=== PATIENT | male | born 1955 | race American Indian/Alaskan Native ===

== ENCOUNTER 2016-10-24 21:31 | Observation (INO) | payer BC ==
[2016-10-24] MEDS ORDERED: TYLENOL ONE (21:35)
[2016-10-24] MEDS ORDERED: TYLENOL PO STA (21:38)
[2016-10-24] MEDS ORDERED: NACL 0.9% 500 ML 500 ML IV ONE (21:38)
[2016-10-24 22:03] LABS: Basophils % (Auto) 0.5 % (0.0-1.8); Eosinophils % (Auto) 1.2 % (0.0-4.3); Hematocrit 36.1 % (35.5-45.6); Hemoglobin 12.4 gm/dl (11.8-15.2); Mean Corpuscular HGB Conc 35 % (32-34); Mean Corpuscular Hemoglobin 38 pg (28-32); Mean Corpuscular Volume 109 fl (84-94); Red Cell Distribution Width 15.3 % (13.2-15.2); White Blood Count 5.4 K/mm3 (4.5-11.0)
[2016-10-24 22:15] LABS: INR 1.36 (0.87-1.13)
[2016-10-24 22:25] LABS: Alanine Aminotransferase 167 units/L (7-56); Albumin 3.2 g/dL (3.9-5); Albumin/Globulin Ratio 0.5 %; Alkaline Phosphatase 173 units/L (35-129); Anion Gap 17 mmol/L; BUN/Creatinine Ratio 31.42; Blood Urea Nitrogen 22 mg/dL (9-20); Calcium 9.1 mg/dL (8.4-10.2); Carbon Dioxide 24 mmol/L (22-30); Glucose 102 mg/dL (75-100); Potassium 4.8 mmol/L (3.6-5.0); Sodium 130 mmol/L (137-145); Total Protein 9.3 g/dL (6.3-8.2)
[2016-10-24] MEDS ORDERED: ZOFRAN IV ONE (22:38)
[2016-10-24] MEDS ORDERED: TYLENOL PO ONE (22:38)
[2016-10-24] MEDS ORDERED: MORPHINE IV ONE (22:38)
[2016-10-24 22:41] LABS: Platelet Count 99 K/mm3 (140-440)
--- NOTE | 2016-10-24 23:43 | Cat Scan Report ---
FINAL REPORT PROCEDURE: CT ANGIO CHEST TECHNIQUE: Computerized tomographic angiography of the chest was performed after the IV injection of iodinated nonionic contrast including image processing. The image data was postprocessed using 2-dimensional multiplanar reformatted (MPR) and 3-dimensional (MIP and/or volume rendered) techniques. HISTORY: for PE COMPARISON: No prior studies are available for comparison. FINDINGS: Heart and pericardium: Normal. Thoracic aorta: There tortuosity of thoracic aorta. No aneurysm or dissection.. Pulmonary vasculature: There is no evidence of pulmonary arterial emboli.. Lymph nodes: No enlarged thoracic lymph nodes. Lungs: Chronic obstructive pulmonary disease with mild fibrosis. No consolidation, effusion or pneumothorax. The central airway is patent. Pleural space: No effusion, thickening, or pneumothorax. Musculoskeletal structures: Mild degenerative changes of the thoracic spine. There is a moderate right convex thoracic scoliosis. No acute osseous abnormality.. Upper abdominal structures: Within the liver there are multiple areas of irregular attenuation throughout the right and left lobes of the liver that is imaged. The largest of these areas is in the anterior left lobe of the liver and measures up to 7.2 centimeters. The findings could represent multiple etiologies including benign and malignant entities as well as metastatic change. A full evaluation of the liver would be appropriate this patient. This could include multi phase CT, MRI and ultrasound. The liver is fatty infiltrated. The spleen appears enlarged. Distended gallbladder is suspected. This is not fully evaluated on this study.,. IMPRESSION: There is no evidence of pulmonary arterial emboli. COPD with mild fibrosis. No consolidation or effusion. Multiple areas of irregular attenuation identified throughout the liver the largest measuring 7.2 centimeters in the anterior left lobe of the liver. Irregular contrast enhancement is noted. Further evaluation of the liver well be essential as described.
[2016-10-24 23:48] LABS: Bilirubin,Urine NEG (Negative); Blood,Urine NEG (Negative); Ketones,Urine NEG (Negative); Leukocyte Esterase,Urine NEG (Negative); Mucus,Urine FEW /HPF; Nitrite,Urine NEG (Negative); Protein,Urine <15 mg/dL mg/dL (Negative); Urobilinogen,Urine < 2.0 mg/dL (<2.0)
--- NOTE | 2016-10-25 01:51 | Cat Scan Report ---
FINAL REPORT PROCEDURE: CT ABDOMEN PELVIS WO CON TECHNIQUE: Computerized axial tomography of the abdomen and pelvis was performed without intravenous contrast. This study is performed without intravascular contrast material and its sensitivity for abdominal and pelvic pathology, including neoplasms, inflammation, abscess, free fluid, thrombosis, arterial dissection and infarction, is reduced compared with a contrast enhanced study. HISTORY: liver CA COMPARISON: No prior studies are available for comparison. FINDINGS: Liver: The liver is enlarged specially the left lobe. There are numerous areas of hypoattenuation in mixed attenuation throughout the liver. In the left lobe of the liver there is a large mass measuring up to 9.5 centimeters. The findings are consistent with the patient's history of liver cancer.. Spleen: The spleen is enlarged.. Gallbladder and biliary system: The gallbladder lumen is distended. No stones are identified. No distention of the biliary ductal system.. Pancreas: Normal. Adrenals: Normal. Kidneys: Both kidneys have normal size. No hydronephrosis. There are few renal cortical cysts identified bilaterally.. GI tract: The stomach is normal. The small bowel has a normal caliber without obstruction. No ileus or enteritis. The colon is normal. There is moderate fecal debris within the colon.. Lymph nodes and mesentery: Normal. Vasculature: Mild atherosclerosis of the aorta and branching vessels.. Bladder: Normal. Reproductive organs: Normal. Peritoneum: No free fluid. Musculoskeletal structures: No significant abnormality. Other: There are bilateral small inguinal hernias containing some fat and a small nondilated loop of bowel on the left.. IMPRESSION: The liver is enlarged with multiple areas of hypoattenuation consistent with the patient's history of liver cancer. The largest area of distension and tumor infiltration is in the left lobe measuring up to 9.5 centimeters. No evidence of intestinal urinary tract obstruction. No ileus or enteritis. Distended gallbladder lumen. No dilatation of the biliary ductal system. Bilateral inguinal hernias. On the left there is a small nondilated loop of bowel contained within the hernia..
--- NOTE | 2016-10-25 02:32 | Emergency Department Report ---
ED Fever HPI - General Chief Complaint: Fever Stated Complaint: DEHYDRATION Time Seen by Provider: 10/24/16 22:37 Source: patient - History of Present Illness Initial Comments: 61 yo male with past medical history of liver cancer presenting to the emergency department complaining of fever and generalized weakness. Patient states over the last 3 days he's been having decreased appetite and has been unable to tolerate food by mouth secondary to nausea vomiting. Patient also endorses a productive cough with yellow sputum. Patient denies headache, neck stiffness, chest.". Urinary complaints. Timing/Duration: just prior to arrival Associated Symptoms: cough, muscle aches, nausea/vomiting. denies: abdominal pain, chest pain, confusion, diaphoresis, headache, rash, shortness of breath, sore throat, stiff neck, syncope, weakness ED Review of Systems ROS: Stated complaint: DEHYDRATION Other details as noted in HPI Constitutional: fever, malaise, weakness Eyes: denies: eye pain, eye discharge, vision change ENT: denies: ear pain, throat pain Respiratory: cough. denies: shortness of breath, wheezing Cardiovascular: denies: chest pain, palpitations Endocrine: no symptoms reported Gastrointestinal: nausea, vomiting. denies: abdominal pain, diarrhea, hematochezia Genitourinary: denies: urgency, dysuria Musculoskeletal: denies: back pain, joint swelling, arthralgia Skin: denies: rash, lesions Neurological: denies: headache, weakness, paresthesias Psychiatric: denies: anxiety, depression Hematological/Lymphatic: denies: easy bleeding, easy bruising ED Past Medical Hx - Past Medical History Previous Medical History?: Yes Additional medical history: Liver issues, recent Liver Biopsy - Surgical History Past Surgical History?: No - Social History Smoking Status: Never Smoker Substance Use Type: None ED Physical Exam - General Limitations: No Limitations General appearance: alert, in no apparent distress - Head Head exam: Present: atraumatic, normocephalic - Eye Eye exam: Present: normal appearance, PERRL, EOMI, scleral icterus - ENT ENT exam: Present: mucous membranes moist - Neck Neck exam: Present: normal inspection - Respiratory Respiratory exam: Present: normal lung sounds bilaterally. Absent: respiratory distress - Cardiovascular Cardiovascular Exam: Present: regular rate, normal rhythm. Absent: systolic murmur, diastolic murmur, rubs, gallop - GI/Abdominal GI/Abdominal exam: Present: soft, normal bowel sounds - Rectal Rectal exam: Present: deferred - Extremities Exam Extremities exam: Present: normal inspection - Back Exam Back exam: Present: normal inspection - Neurological Exam Neurological exam: Present: alert, oriented X3 - Psychiatric Psychiatric exam: Present: normal affect, normal mood - Skin Skin exam: Present: warm, dry, intact, normal color. Absent: rash - Other Other exam information: NIHSS: 0 ED Course Vital Signs 10/24/16 10/24/16 10/24/16 21:40 22:17 22:51 Temperature 101.3 F H 100.8 F H Pulse Rate 96 H 103 H Respiratory 24 18 18 Rate Blood Pressure 132/85 102/67 [Right] O2 Sat by Pulse 97 92 Oximetry - Reevaluation(s) Reevaluation #1: 10/25/16 02:43 pt resting comfortably ED Medical Decision Making - Lab Data Result diagrams: 10/24/16 21:40 10/24/16 21:40 - EKG Data EKG shows normal: sinus rhythm (81), axis (normal ), intervals (normal QTC ), ST -T waves (no elevation, no depression ) Rate: normal - Radiology Data Radiology results: report reviewed, image reviewed CTA chest: There is no evidence of pulmonary arterial emboli. COPD with mild fibrosis. No consolidation or effusion. Multiple areas of irregular attenuation identified throughout the liver the largest measuring 7.2 cm in the anterior left lobe of the liver. Irregular contrast enhancement is noted. Further evaluation liver the essential as described. Dr. Mervin Gomes CT abdomen and pelvis: liver is enlarged multiple areas of hypoattenuation consistent with the patient's history of liver cancer. The largest area distention and tumor infiltration is in the left lobe measuring up to 9.5 cm. No evidence of intestinal urinary tract obstruction. No ileus or enteritis. Distended gallbladder lumen. No dilatation of the biliary ductal system. Bilateral inguinal hernias. On the left there is a small nondilated loop of bowel contained within the hernia. Dr. Earnestine Gomes - Medical Decision Making 61 YO male with history of liver CA presenting to ED with cough and fever 1) Fever unsure of cause however given pt is immunosuppressed, I wIll start him on Levaquin IV, and admit the medicine service observation. Patient workup negative for PE, ACS. The suspicion for CVA as NIH stroke scale 0 patient has no focal neurological deficits. Critical care attestation.: If time is entered above; I have spent that time in minutes in the direct care of this critically ill patient, excluding procedure time. ED Disposition Clinical Impression: Fever, Fatigue, Cough Disposition: DC-[id number] OP ADMIT IP TO THIS HOSP Is pt being admited?: Yes Does the pt Need Aspirin: No Condition: Stable Referrals: PRIMARY CARE, [Primary Care Provider] - 3-5 Days
[2016-10-25] MEDS ORDERED: ZOFRAN IV PRN (02:51)
[2016-10-25] MEDS ORDERED: TYLENOL PO PRN (02:56)
[2016-10-25] MEDS ORDERED: MORPHINE IV ONE (02:56)
[2016-10-25] MEDS ORDERED: TESSALON PERLES PO ONE ×2 (02:57→04:24)
[2016-10-25] MEDS ORDERED: MORPHINE IV PRN (03:01)
--- NOTE | 2016-10-25 03:08 | History and Physical Report ---
History of Present Illness Date of examination: 10/25/16 Date of admission: 10/25/16 Chief complaint: Chief complaint is weakness, other complaint include cough History of present illness: History of present illness, patient is a 61-year-old male with history of liver cancer presenting with weakness, cough productive of yellow sputum and inability to keep food down because of nausea vomiting. There is no history of chest pain, no history of shortness of breath but there is history of fever, patient also denied history of diarrhea and denied history of dizziness. Past History Past Medical History: liver disease Past Surgical History: Other (LIVER BIOPSY) Social history: no significant social history Family history: no significant family history Medications and Allergies Allergies Allergy/AdvReac Type Severity Reaction Status Date / Time No Known Allergies Allergy Verified 10/24/16 21:38 Active Meds: Active Medications Acetaminophen (Tylenol) 650 mg PO Q4H PRN PRN Reason: For Pain/Fever/Headache Albuterol/Ipratropium (Duoneb 0.5 Mg-3 Mg/3 Ml Soln) 1 ampul IH QIDRT [facility] Heparin Sodium (Porcine) (Heparin) 5,000 unit SUB-Q Q12HR [facility] Levofloxacin/Dextrose (Levaquin 750mg/150ml) 750 mg in 150 mls @ 100 mls/hr IV Q24HR [facility]OH[facility] PRN Reason: Protocol Levofloxacin/Dextrose (Levaquin 750mg/150ml) 750 mg in 150 mls @ 100 mls/hr IV Q24HR [facility]OHRA PRN Reason: Protocol Sodium Chloride (Nacl 0.9% 1000 Ml) 1,000 mls @ 75 mls/hr IV DIRECT [facility] Methylprednisolone Sodium Succinate (Solu-Medrol) 60 mg IV Q8H [facility] Morphine Sulfate (Morphine) 2 mg IV Q4H PRN PRN Reason: Pain, Moderate (4-6) Ondansetron HCl (Zofran) 4 mg IV Q6H PRN PRN Reason: Nausea And Vomiting Pseudoephedrine/Acetam/Chlorphenir (Robitussin Ac) 5 ml PO Q4H PRN PRN Reason: Cough Review of Systems Constitutional: fever, anorexia, weakness, no weight loss, no weight gain, no chills, no sweats, no night sweats, no malaise, no lethargy, no chronic headaches, no poor appetite, no daytime sleepiness, no chronic pain Eyes: bilateral: other (NO BILATERAL EYE SYMPTOMS) Ears, nose, mouth and throat: no ear pain, no ear discharge, no tinnitis, no decreased hearing, no nose pain, no nasal congestion, no nasal discharge, no sinus pressure, no sinus pain, no bleeding gums, no mouth pain, no hoarseness, no sore throat, no swelling in mouth, no post-nasal drip, no headache, no vertigo, no pain front of neck, no neck fullness/pressure, no neck lump Cardiovascular: no chest pain, no orthopnea, no palpitations, no rapid/ irregular heart beat, no edema, no lightheadedness, no shortness of breath, no dyspnea on exertion, no paroxysmal nocturnal dyspnea, no claudication, no phlebitis, no high blood pressure, no leg edema, no decreased exercise tolerance Respiratory: cough with sputum, no excessive sputum, no hemoptysis, no shortness of breath, no pleurisy, no pain, no respiratory infections, no home oxygen Gastrointestinal: no abdominal pain, no nausea, no vomiting, no diarrhea, no constipation, no change in bowel habits, no hematemesis, no melena, no hematochezia, no loss of appetite, no early satiety, no heartburn, no indigestion, no jaundice, no dyspepsia/bloating, no early satiety Genitourinary Male: no dysuria, no hematuria, no flank pain, no discharge, no urinary frequency, no urinary hesitancy, no nocturia, no incontinence, no erectile dysfunction, no impotence, no decreased libido, no testicular pain, no testicular lump, no difficulties fathering child, no polyuria, no urinary retention, no kidney stones Rectal: no pain, no incontinence, no bleeding, no itching, no hemorrhoids, no discharge, no flatulence, no other Musculoskeletal: no neck stiffness, no neck pain, no shooting arm pain, no arm numbness/tingling, no low back pain, no shooting leg pain, no leg numbness/ tingling, no redness of joints, no hot joints, no morning stiffness, no muscle weakness, no muscle cramps, no myalgias, no atrophy, no limitation of motion, no frequent falls, no fractures, no loss of height, no prior amputations Integumentary: no rash, no pruritis, no redness, no sores, no wounds, no jaundice, no boils, no blisters, no growths, no bullae, no lesions, no darkening of skin, no depigmentation, no acne, no dryness, no color changes, no change in hair/nails, no brittle nails, no striae, no hirsutism, no foot/leg ulcers, no onychomycosis Neurological: no head injury, no transient paralysis, no paralysis, no weakness , no parathesias, no numbness, no tingling, no seizures, no syncope, no tremors , no vertigo, no headaches, no migraines, no convulsions, no aphasia, no change in speech, no change in mentation, no confusion, no memory loss, no gait dysfunction, no motor disturbance, no sensory deficit, no hearing difficulties, no burning pain, no paralysis, no spasticity Psychiatric: no memory loss, no change in sleep habits, no sleep disturbances, no insomnia, no hypersomnia, no change in appetite, no change in libido, no suicidal ideation, no disorientation, no paranoia, no depression, no hopelessness, no anhedonia, no anxiety attacks, no difficulties concentrating, no confusion, no irritability, no sadness/tearfullness Endocrine: no cold intolerance, no heat intolerance, no excessive thirst, no polydipsia, no polyuria, no proptosis, no deepening of the voice, no thyroid mass, no palpatations, no high blood sugars, no low blood sugars, no recent glucocorticoid use Hematologic/Lymphatic: no easy bruising, no easy bleeding, no lymphadenopathy, no lymphedema, no thrombophilia Allergic/Immunologic: no urticaria, no allergic rhinitis, no wheezing, no persistent infections, no anaphylaxis, no angioedema, no gluten intolerance, no seasonal allergies Exam - Constitutional Vitals: Temp Pulse Resp BP Pulse Ox 100.8 F H 103 H 18 102/67 92 10/24/16 22:17 10/24/16 22:17 10/24/16 22:51 10/24/16 22:17 10/24/16 22:17 General appearance: Present: mild distress - EENT Eyes: Present: PERRL, EOM intact ENT: clear oral mucosa - Neck Neck: Present: supple, normal ROM - Respiratory Respiratory effort: normal - Cardiovascular Rhythm: regular Heart Sounds: Present: S1 & S2. Absent: gallop, systolic murmur, diastolic murmur, rub, click - Extremities Extremities: no ischemia, No edema Peripheral Pulses: within normal limits - Abdominal General gastrointestinal: Present: soft, non-tender, non-distended, rigid, normal bowel sounds. Absent: tender, distended Male genitourinary: Present: deferred - Rectal Rectal Exam: deferred - Integumentary Integumentary: Present: clear, warm, dry - Musculoskeletal Musculoskeletal: strength equal bilaterally - Psychiatric Psychiatric: appropriate mood/affect - Neurologic Neurologic: CNII-XII intact Results - Labs CBC & Chem 7: 10/24/16 21:40 10/24/16 21:40 Labs: Laboratory Last Values WBC 5.4 K/mm3 (4.5-11.0) 10/24/16 21:40 RBC 3.30 M/mm3 (3.65-5.03) L 10/24/16 21:40 Hgb 12.4 gm/dl (11.8-15.2) 10/24/16 21:40 Hct 36.1 % (35.5-45.6) 10/24/16 21:40 MCV 109 fl (84-94) H 10/24/16 21:40 MCH 38 pg (28-32) H 10/24/16 21:40 MCHC 35 % (32-34) H 10/24/16 21:40 RDW 15.3 % (13.2-15.2) H 10/24/16 21:40 Plt Count 99 K/mm3 (140-440) L 10/24/16 21:40 Lymph % (Auto) 20.2 % (13.4-35.0) 10/24/16 21:40 [place] % (Auto) 13.7 % (0.0-7.3) H 10/24/16 21:40 Eos % (Auto) 1.2 % (0.0-4.3) 10/24/16 21:40 Baso % (Auto) 0.5 % (0.0-1.8) 10/24/16 21:40 Lymph # 1.1 K/mm3 (1.2-5.4) L 10/24/16 21:40 [place] # 0.7 K/mm3 (0.0-0.8) 10/24/16 21:40 Eos # 0.1 K/mm3 (0.0-0.4) 10/24/16 21:40 Baso # 0.0 K/mm3 (0.0-0.1) 10/24/16 21:40 Seg Neutrophils % 64.4 % (40.0-70.0) 10/24/16 21:40 Seg Neutrophils # 3.5 K/mm3 (1.8-7.7) 10/24/16 21:40 PT 16.7 Sec. (12.2-14.9) H 10/24/16 21:40 INR 1.36 (0.87-1.13) H 10/24/16 21:40 VBG pH 7.390 (7.320-7.420) 10/24/16 21:40 Sodium 130 mmol/L (137-145) L 10/24/16 21:40 Potassium 4.8 mmol/L (3.6-5.0) 10/24/16 21:40 Chloride 94.0 mmol/L (98-107) L 10/24/16 21:40 Carbon Dioxide 24 mmol/L (22-30) 10/24/16 21:40 Anion Gap 17 mmol/L 10/24/16 21:40 BUN 22 mg/dL (9-20) H 10/24/16 21:40 Creatinine 0.7 mg/dL (0.8-1.5) L 10/24/16 21:40 Estimated GFR > 60 ml/min 10/24/16 21:40 BUN/Creatinine Ratio 31.42 % 10/24/16 21:40 Glucose 102 mg/dL (75-100) H 10/24/16 21:40 Lactic Acid 1.00 mmol/L (0.7-2.0) 10/25/16 00:27 Calcium 9.1 mg/dL (8.4-10.2) 10/24/16 21:40 Total Bilirubin 4.80 mg/dL (0.1-1.2) H 10/24/16 21:40 AST 438 units/L (5-40) H 10/24/16 21:40 ALT 167 units/L (7-56) H 10/24/16 21:40 Alkaline Phosphatase 173 units/L (35-129) H 10/24/16 21:40 Total Protein 9.3 g/dL (6.3-8.2) H 10/24/16 21:40 Albumin 3.2 g/dL (3.9-5) L 10/24/16 21:40 Albumin/Globulin Ratio 0.5 % 10/24/16 21:40 Urine Color Cheryl (Yellow) 10/24/16 23:00 Urine Turbidity Clear (Clear) 10/24/16 23:00 Urine pH 5.0 (5.0-7.0) 10/24/16 23:00 Ur Specific [place] 1.023 (1.003-1.030) 10/24/16 23:00 Urine Protein <15 mg/dl mg/dL (Negative) 10/24/16 23:00 Urine Glucose (UA) Neg mg/dL (Negative) 10/24/16 23:00 Urine Ketones Neg mg/dL (Negative) 10/24/16 23:00 Urine Blood Neg (Negative) 10/24/16 23:00 Urine Nitrite Neg (Negative) 10/24/16 23:00 Urine Bilirubin Neg (Negative) 10/24/16 23:00 Urine Urobilinogen < 2.0 mg/dL (<2.0) 10/24/16 23:00 Ur Leukocyte Esterase Neg (Negative) 10/24/16 23:00 Urine WBC (Auto) 1.0 /HPF (0.0-6.0) 10/24/16 23:00 Urine RBC (Auto) 3.0 /HPF (0.0-6.0) 10/24/16 23:00 U Epithel Cells (Auto) < 1.0 /HPF (0-13.0) 10/24/16 23:00 Hyaline Casts 6 /LPF 10/24/16 23:00 Urine Mucus Few /HPF 10/24/16 23:00 Assessment and Plan - Patient Problems (1) Weakness Current Visit: Yes Status: Acute Plan to address problem: Patient will be placed on observation in the medical aceves will be on i.v N/ saline at 75ML/HR the patient will be on Robitussin AC 5 ML by mouth every 4 hours when necessary cough, patient will also be on IV Levaquin 750 mg daily because of COPD and will be on DuoNeb 4 times a day. Patient will also be on Solu-Medrol 60 mg every 8 hours and, will be on Zofran 4 mg every 6 hours as needed for nausea vomiting (2) COPD (chronic obstructive pulmonary disease) Current Visit: Yes Status: Acute Qualifiers: COPD type: C Chronic bronchitis type: C Emphysema type: E
[2016-10-25] MEDS ORDERED: MORPHINE ONE (04:21)
[2016-10-25] MEDS: NACL 0.9% 1000 ML 1,000 ML IV SCH ×2 (05:24→21:25)
[2016-10-25] MEDS ORDERED: DUONEB 0.5 MG-3 MG/3 ML SOLN IH SCH ×2 (08:00→10:45)
--- NOTE | 2016-10-25 09:03 | Event Note ---
Date: 10/25/16 Patient with liver CA question metastasis and with elevated transaminitis which could also be secondary to liver cancer. We'll obtain consultation with hematology oncologist. Also the patient has been here before we will obtain a merge his records. And we'll also check hepatitis profile. We'll discontinue acetaminophen and ibuprofen could be used for fever. Source of infection still unknown but this could be secondary to the cancer. We'll continue current antibiotic with Levaquin. He informs me that the reason he has not been eating is because he has poor appetite. He states he does not feel nauseous today and would like to eat a regular diet.
--- NOTE | 2016-10-25 09:06 | XRay Report ---
Single view chest: History: Possible sepsis. Findings: Cardiomegaly. Trachea is midline. No consolidation, pneumothorax or pleural effusion. Impression: Cardiomegaly. No acute changes.
[2016-10-25] MEDS ORDERED: LEVAQUIN 750MG/150ML 750 MG/150 ML BAG IV SCH (10:00)
[2016-10-25] MEDS ORDERED: PROVENTIL IH PRN (10:48)
[2016-10-25] MEDS: HEPARIN SUB-Q SCH ×2 (11:08→21:27)
[2016-10-25] MEDS: LEVAQUIN 750MG/150ML 750 MG/150 ML BAG IV SCH (11:09)
[2016-10-25] MEDS: ROBITUSSIN AC PO PRN ×2 (11:19→18:16)
--- NOTE | 2016-10-25 11:39 | Hem/Onc Progress Note ---
Assessment and Plan Awaiting pathology. Apparently the pathology was sent to [place]. LFTs seem to be elevated secondary to liver dysfunction. Patient is better with fluids. If he gets discharged, he needs to follow-up with Dr. Alcala. Subjective Date of service: 10/25/16 Interval history: Patient is a known patient of Dr. Alcala. He has evidence of liver lesions. Recent biopsy was done. Results are not back yet. He had a colonoscopy earlier in the year which he says was unremarkable. It was done by Dr. Coffey. Patient has not had EGD. He has history of hepatitis C. He's never had any treatment for that. He does not smoke or drink. She presented with weakness cough chills. He feels a lot better with the fluids. CT findings noted. Objective - Exam Narrative Exam: Icteric - Constitutional Vitals: Last Vital Signs Temp 100.1 F H 10/25/16 07:40 Pulse 90 10/25/16 08:18 Resp 18 10/25/16 08:18 BP 103/69 10/25/16 07:40 Pulse Ox 94 10/25/16 07:55 General appearance: mild distress Performance status: 2- selfcare, ambulatory - Neck Neck: supple - Respiratory Respiratory: bilateral: diminished - Cardiovascular Rhythm: regular Extremities: No edema - Gastrointestinal General gastrointestinal: Present: other (fullness all in the right upper quadrant up to the epigastric area consistent with enlarged liver)
[2016-10-26] MEDS: ROBITUSSIN AC PO PRN (05:12)
[2016-10-26 08:10] VITALS: BP 126/78
[2016-10-26 08:15] LABS: Hemoglobin 11.3 gm/dl (11.8-15.2); Mean Corpuscular HGB Conc 34 % (32-34); Mean Corpuscular Hemoglobin 37 pg (28-32); Mean Corpuscular Volume 108 fl (84-94); Red Blood Count 3.05 M/mm3 (3.65-5.03); Red Cell Distribution Width 14.9 % (13.2-15.2); White Blood Count 2.9 K/mm3 (4.5-11.0)
[2016-10-26 08:23] LABS: Platelet Count 69 K/mm3 (140-440)
[2016-10-26 08:34] LABS: Alanine Aminotransferase 118 units/L (7-56); Albumin 2.5 g/dL (3.9-5); Alkaline Phosphatase 140 units/L (35-129); Anion Gap 15 mmol/L; Blood Urea Nitrogen 14 mg/dL (9-20); Calcium 8.3 mg/dL (8.4-10.2); Carbon Dioxide 23 mmol/L (22-30); Chloride 103.8 mmol/L (98-107); Glucose 132 mg/dL (75-100); Potassium 4.8 mmol/L (3.6-5.0); Sodium 137 mmol/L (137-145)
--- NOTE | 2016-10-26 08:49 | Discharge Summary ---
Providers - Providers Date of Admission: 10/25/16 02:49 Date of discharge: 10/26/16 Attending physician: WILMAN PHILLIPS MD 10/25/16 09:00 Consult to Physician [CONS] Routine Consulting Provider: TRINIDAD JERNIGAN Reason For Exam: liver ca Place consult to:: dr. jernigan Notified:: answering service Phone number called:: [phone] Was contact made?: Yes If yes, spoke with:: alpesh Time called:: 11:06 Primary care physician: FIRE EATER Hospitalization Reason for admission: nausea with vomiting Condition: Stable Hospital course: Patient is a 61-year-old male with a history of alcohol-related liver disease, hepatitis C, thrombosis who presents to the hospital with complaints of generalized weakness, cough productive of yellow phlegm, nausea with vomiting and inability to keep food down. Upon arrival to the hospital patient was started on Zofran was noted to be hyponatremic and started on IV fluids. Initially the patient was kept nothing by mouth but he reported that his symptoms had improved and was very hungry. He reported that his poor by mouth intake was not as a result of the nausea and vomiting but due to poor appetite. He felt that this has resolved. His labs initially showed an elevated LFTs but this trended down. Unfortunately his records were not managed with his old record which has him on that in name Ranjit Domínguez with him and number of [id number]. Upon review of this record appears that all his labs in sync. I also did find the pathology report which demonstrates hepatocellular carcinoma. The patient is clinically stable for discharge was seen by hematology oncology and is to follow with Dr. Whalen on discharge. Also recommended continued follow up with the technology teacher due to the hepatitis C as this needs to be follow workup. Discharge diagnosis * Hepatocellular carcinoma * Hyponatremia * Gastroenteritis * Transaminitis * Hepatitis C * Thrombocytosis * Pancytopenia Disposition: TO HOME OR SELFCARE Time spent for discharge: 35 mins Core Measure Documentation - Palliative Care Palliative Care/ Comfort Measures: Not Applicable - Core Measures Any of the following diagnoses?: none - VTE Discharge Requirements Deep Vein Thrombosis/Pulmonary Embolism Present on Admission: No Exam - Physical Exam Narrative exam: VITAL SIGNS: Reviewed. GENERAL: The patient appeared well appears older than stated age, chronically ill appearing. Vital signs as documented. HEAD: No signs of head trauma, but noted temporal wasting. EYES: Pupils are equal. Extraocular motions intact. Sclera icterus is noted EARS: Hearing grossly intact. MOUTH: Oropharynx is normal. NECK: No adenopathy, no JVD. CHEST: Chest with clear breath sounds bilaterally. No wheezes, rales, or rhonchi. CARDIAC: Regular rate and rhythm. S1 and S2, without murmurs, gallops, or rubs. VASCULAR: No Edema. Peripheral pulses normal and equal in all extremities. ABDOMEN: Soft, without detectable tenderness. No sign of distention. No rebound or guarding, and no masses palpated. Bowel Sounds normal. MUSCULOSKELETAL: Good range of motion of all major joints. Extremities without clubbing, cyanosis or edema. NEUROLOGIC EXAM: Alert and oriented x 3. No focal sensory or strength deficits. Speech normal. Follows commands. PSYCHIATRIC: Mood normal. SKIN: No rash or lesions. - Constitutional Vitals: Temp Pulse Resp BP Pulse Ox 97.9 F 75 16 126/78 97 10/26/16 07:45 10/26/16 07:45 10/26/16 07:45 10/26/16 07:45 10/26/16 07:45 Plan Activity: advance as tolerated, fall precautions Diet: regular Follow up with: PRIMARY CARE, [Primary Care Provider] - 3-5 Days MARLENE WHALEN MD [Staff Physician] - 7 Days GEETA RIOJAS MD [Staff Physician] - 7 Days Prescriptions: Ondansetron [Zofran TAB] 4 mg PO Q8HR PRN #30 tablet PRN Reason: Nausea And Vomiting
[2016-10-26] MEDS: HEPARIN SUB-Q SCH (11:02)
[2016-10-26 11:03] LABS: Albumin/Globulin Ratio 0.5 %
[2016-10-26] MEDS: LEVAQUIN 750MG/150ML 750 MG/150 ML BAG IV SCH (11:18)
== END 2016-10-26 14:45 | disposition home or self-care (01) ==
LOC: ED 21:31 → 3A 10-25 02:49
PROVIDERS: ADMIT Internal Medicine; ATTEND Internal Medicine
DX: R53.1 Weakness (principal); J44.9 Chronic obstructive pulmonary disease, unspecified; C22.7 Other specified carcinomas of liver; R11.2 Nausea with vomiting, unspecified; B19.20 Unspecified viral hepatitis C without hepatic coma; E87.1 Hypo-osmolality and hyponatremia; K52.9 Noninfective gastroenteritis and colitis, unspecified; R74.0 Nonspecific elevation of levels of transaminase and lactic acid dehydrogenase [LDH]; D47.3 Essential (hemorrhagic) thrombocythemia; D61.818 Other pancytopenia; Z85.05 Personal history of malignant neoplasm of liver
CPT/HCPCS: 36415; 71010; 71275; 74176; 80053; 80074; 81001; 82140; 82805; 85025; 85027; 85610; 87040; 87086; 93005; 93010; 94640; 94760; 96361; 96365; 96366; 96372; 96375; 96376; 99285; G0378; J1644; J1956; J2270; J2405; J2920; J7030; J7040; Q9967; 96374

== ENCOUNTER 2017-01-03 23:36 | Inpatient (IN) | payer BC ==
--- NOTE | 2017-01-04 00:36 | Emergency Department Report ---
HPI - General Chief Complaint: Dyspnea/Respdistress Time Seen by Provider: 01/04/17 00:08 - HPI HPI: Room 22 The patient is a 61-year-old male presenting with a chief complaint of shortness of breath. The patient states for the past 2-3 days he's had worsening shortness of breath. This evening patient awakened with worsening shortness of breath. Patient complains of abdominal tenderness and difficulty moving the fingers on his right hand. Patient has a history of metastatic hepatocellular carcinoma and hepatitis C and is on home hospice. The patient was previously DO NOT RESUSCITATE but this has been revoked and the patient is full code Location: [see above] Duration: [see above] Quality: Shortness of breath Severity: Moderate Modifying factors: [see above] Context: [see above] Mode of transportation: [not driving] ED Past Medical Hx - Past Medical History Previous Medical History?: Yes Hx Liver Disease: Yes (hepatitis c, metastatic hepatocellular carcinoma) Hx of Cancer: Yes (metastatic hepatocellular carcinoma) Hx Arthritis: Yes (bilateral hands) Hx COPD: Yes Additional medical history: Liver issues, recent Liver Biopsy,pneumonia, alcohol related liver disease///liver cancer, esophageal varices - Surgical History Past Surgical History?: Yes - Family History Family history: no significant - Social History Smoking Status: Never Smoker Substance Use Type: None - Medications Home Medications: Home Medications Medication Instructions Recorded Confirmed Last Taken Type Thiamine [Vitamin B-1] 100 mg PO QDAY #30 tablet 11/30/14 12/22/16 10/15/16 Rx Bisacodyl [Dulcolax suppos] 10 mg [place] QDAY PRN #4 supp.rect 11/14/16 12/22/16 Unknown Rx Cholecalciferol (Vitamin D3) 2,000 units PO QDAY #30 11/14/16 12/22/16 Rx [Vitamin D3 2,000 unit] HYDROcodone/APAP 10-325 [[place] 1 each PO TID PRN #30 tablet 11/14/16 12/20/16 Unknown Rx 10-325 mg TAB] Ipratropium/Albuterol Sulfate 1 ampul IH Q6HRT #30 ampul.neb 11/14/16 12/22/16 Unknown Rx [DUONEB *Not for PRN Use*] Ondansetron [Zofran TAB] 4 mg PO Q4H PRN #30 tablet 11/14/16 12/20/16 Unknown Rx Pantoprazole [Protonix TAB] 40 mg PO QDAY #30 tablet 11/14/16 12/22/16 Unknown Rx guaiFENesin [Robitussin] 200 mg PO Q4H PRN #30 oral.liqd 11/14/16 12/22/16 Unknown Rx Folic Acid 1 tab PO QDAY 12/20/16 12/20/16 Unknown History Spironolactone [Aldactone] 50 mg PO BID 12/20/16 12/20/16 Unknown History chlorproMAZINE [Thorazine] 25 mg PO Q8H PRN 12/20/16 12/20/16 Unknown History ED Review of Systems ROS: Stated complaint: DIFFICULTY IN BREATHING Other details as noted in HPI Comment: All other systems reviewed and negative Constitutional: denies: chills, fever Eyes: denies: eye pain, eye discharge, vision change ENT: denies: ear pain, throat pain Respiratory: shortness of breath Cardiovascular: denies: chest pain, palpitations Endocrine: no symptoms reported Gastrointestinal: abdominal pain Genitourinary: denies: urgency, dysuria Musculoskeletal: back pain Skin: denies: rash, lesions Neurological: weakness Psychiatric: denies: anxiety, depression Hematological/Lymphatic: denies: easy bleeding, easy bruising Physical Exam - Physical Exam Vital Signs: Vital Signs 01/04/17 00:01 Temperature 97.7 F Pulse Rate 120 H Respiratory 28 H Rate Blood Pressure 89/54 [Left] O2 Sat by Pulse 99 Oximetry Physical Exam: GENERAL: The patient is well-developed thin male lying on stretcher appearing cachectic and lethargic HEENT: Normocephalic. Atraumatic. Extraocular motions are intact. Icteric sclera NECK: Trachea midline CHEST/LUNGS: Clear to auscultation. HEART/CARDIOVASCULAR: Regular. There is no tachycardia. There is no gallop rub or murmur. ABDOMEN: Abdomen is soft, and protuberant with large ascites. Small tenderness to palpation in the left upper quadrant and right upper quadrant SKIN: There is no rash. There is 2-3+ bilateral lower extremity pitting edema. Jaundice NEURO: The patient is awake and oriented but appears lethargic. The patient is cooperative. Cranial nerves II through XII grossly intact. The patient has normal speech. Patient's 2 week to assess for pronator drift. Patient's associate professor of library media are equal bilaterally with sounds and index fingers/middle finger. Patient states he is unable to move his small and ring fingers of the right hand MUSCULOSKELETAL: There is no evidence of acute injury. ED Course Vital Signs 01/04/17 00:01 Temperature 97.7 F Pulse Rate 120 H Respiratory 28 H Rate Blood Pressure 89/54 [Left] O2 Sat by Pulse 99 Oximetry - Reevaluation(s) Reevaluation #1: 01/04/17 01:21 Discussed with patient my desire to place a central line given the lack of peripheral access despite multiple attempts by nursing. Patient currently does not wish to have a central line placed and states he does not want an EJ IV either. Family at bedside. ED Medical Decision Making - Lab Data Result diagrams: 01/04/17 00:30 01/04/17 00:30 Laboratory Tests 01/04/17 01/04/17 01/04/17 00:30 00:30 00:30 WBC 10.1 RBC 2.30 L Hgb 8.6 L Hct 26.5 L MCV 115 H MCH 38 H MCHC 33 RDW 15.3 H Plt Count 134 L Lymph % (Auto) 11.0 L [place] % (Auto) 15.0 H Eos % (Auto) 0.1 Baso % (Auto) 0.2 Lymph # 1.1 L [place] # 1.5 H Eos # 0.0 Baso # 0.0 Seg Neutrophils % 73.7 H Seg Neutrophils # 7.5 PT 23.4 H INR 2.08 H APTT 33.5 Sodium 123 L Potassium 5.5 H Chloride 86.0 L Carbon Dioxide 15 L Anion Gap 28 BUN 18 Creatinine 1.1 Estimated GFR > 60 BUN/Creatinine Ratio 16.36 Glucose 156 H Calcium 8.1 L Total Bilirubin 5.60 H AST 193 H ALT 71 H Alkaline Phosphatase 128 Ammonia Total Creatine Kinase 83 CK-MB (CK-2) 1.4 CK-MB (CK-2) Rel Index 1.6 Troponin T < 0.010 NT-Pro-B Natriuret Pep 612.7 Total Protein 7.7 Albumin 1.2 L Albumin/Globulin Ratio 0.2 01/04/17 00:30 WBC RBC Hgb Hct MCV MCH MCHC RDW Plt Count Lymph % (Auto) [place] % (Auto) Eos % (Auto) Baso % (Auto) Lymph # [place] # Eos # Baso # Seg Neutrophils % Seg Neutrophils # PT INR APTT Sodium Potassium Chloride Carbon Dioxide Anion Gap BUN Creatinine Estimated GFR BUN/Creatinine Ratio Glucose Calcium Total Bilirubin AST ALT Alkaline Phosphatase Ammonia 65.0 H Total Creatine Kinase CK-MB (CK-2) CK-MB (CK-2) Rel Index Troponin T NT-Pro-B Natriuret Pep Total Protein Albumin Albumin/Globulin Ratio Repeat potassium pending - EKG Data -: EKG Interpreted by Me EKG shows normal: sinus rhythm Rate: tachycardia (112 bpm) - EKG Data When compared to previous EKG there are: previous EKG unavailable - Radiology Data Radiology results: image reviewed (chest x-ray) interpreted by me: Chest x-ray-no focal infiltrates, hypoinflated lungs. There is a line in the left periphery of the lung zone that I do not believe represents a pneumothorax as it continues past the ribs and there are lung markings present distal - Differential Diagnosis hepatic encephalopathy, sepsis, end-stage liver disease Critical care attestation.: If time is entered above; I have spent that time in minutes in the direct care of this critically ill patient, excluding procedure time. ED Disposition Clinical Impression: Anemia, Thrombocytopenia, Coagulopathy, Metastatic cancer, Hyponatremia, Hepatocellular carcinoma Disposition: DC-09 OP ADMIT IP TO THIS HOSP Is pt being admited?: Yes Does the pt Need Aspirin: No Condition: Serious Referrals: PRIMARY CARE, [Primary Care Provider] - 3-5 Days Time of Disposition: 02:11 (hospitalist paged) Blank Doc - Documentation Documentation: Central line note Consent was obtained verbally Location: [Right femoral] The site was prepped and draped in a sterile fashion Site was anesthetized with lidocaine 1% approximately [3 mL] Landmarks identified and needle introduced until return of [dark nonpulsatile] blood Blood was obtained on second attempt Guidewire introduced using Seldinger technique and triple lumen catheter placed over guidewire There was blood return from [all 3 ports] Catheter was secured to patient by [suture/adhesive] The patient tolerated procedure well The initial attempt resulted in arterial puncture. Needle was withdrawn and pressure was held until hemostatic.
[2017-01-04 00:58] LABS: Basophils % (Auto) 0.2 % (0.0-1.8); Eosinophils % (Auto) 0.1 % (0.0-4.3); Hematocrit 26.5 % (35.5-45.6); Hemoglobin 8.6 gm/dl (11.8-15.2); Mean Corpuscular HGB Conc 33 % (32-34); Mean Corpuscular Hemoglobin 38 pg (28-32); Mean Corpuscular Volume 115 fl (84-94); Platelet Count 134 K/mm3 (140-440); Red Cell Distribution Width 15.3 % (13.2-15.2); White Blood Count 10.1 K/mm3 (4.5-11.0)
[2017-01-04] MEDS ORDERED: CEPHULAC PO ONE (01:03)
[2017-01-04] MEDS ORDERED: NACL 0.9% 500 ML 500 ML IV ONE ×2 (01:04→10:14)
[2017-01-04 01:13] LABS: Creatine Kinase MB 1.4 ng/mL (0.0-4.0)
[2017-01-04 01:15] LABS: Alanine Aminotransferase 71 units/L (7-56); Albumin 1.2 g/dL (3.9-5); Albumin/Globulin Ratio 0.2 %; Alkaline Phosphatase 128 units/L (35-129); Anion Gap 28 mmol/L; BUN/Creatinine Ratio 16.36; Blood Urea Nitrogen 18 mg/dL (9-20); Calcium 8.1 mg/dL (8.4-10.2); Carbon Dioxide 15 mmol/L (22-30); Creatine Kinase 83 units/L (55-170); Glucose 156 mg/dL (75-100); Potassium 5.5 mmol/L (3.6-5.0); Sodium 123 mmol/L (137-145); Total Protein 7.7 g/dL (6.3-8.2)
[2017-01-04 01:20] LABS: INR 2.08 (0.87-1.13)
[2017-01-04 01:21] LABS: Partial Thromboplastin Time 33.5 Sec. (24.2-36.6)
[2017-01-04] MEDS ORDERED: LEVOPHED DRIP 4 MG/NS 250 ML 4 MG/250 ML BAG IV ONE ×3 (02:08→02:11)
--- NOTE | 2017-01-04 02:40 | XRay Report ---
FINAL REPORT PROCEDURE: XR CHEST 1V AP TECHNIQUE: Chest radiograph anteroposterior view. CPT 57283 HISTORY: shortness of breath COMPARISON: 12/20/2016 FINDINGS: Heart: Normal. Mediastinum/Vessels: Normal. Lungs/Pleural space: Moderate infiltrate/atelectasis with effusion left lower lung. Mild atelectasis right lower lung. Elevated right hemidiaphragm. No pneumothorax. Bony thorax: No acute osseous abnormality. Life support devices: None. IMPRESSION: Moderate infiltrate/atelectasis with effusion in the left lower lung. Slight atelectasis right lower lung..
[2017-01-04] MEDS ORDERED: NORCO 10/325 PO PRN (04:14)
[2017-01-04] MEDS ORDERED: ROBITUSSIN PO PRN (04:14)
[2017-01-04] MEDS ORDERED: DULCOLAX PR PRN (04:14)
--- NOTE | 2017-01-04 04:14 | History and Physical Report ---
History of Present Illness Date of examination: 01/04/17 Date of admission: 01/04/17 02:15 Chief complaint: Shortness of breath History of present illness: 61-year-old -[place] male with a medical history significant for hepatocellular CA, ascites, hepatitis c presented to the emergency department complaining of shortness of breath for the past 3 days. Patient also complains dry cough, subjective fever. Patient has abdominal pain and leg swelling. Patient was discharged from this hospital to home hospice. On previous admissions patient was DO NOT RESUSCITATE DO NOT INTUBATE but he changed his mind currently underwent to be full code. REVIEW OF SYSTEMS: GENERAL: Significant with loss, + fatigue, + fever HEAD: no head ache EYES: no blurry vision, no acute visual loss EARS: no hearing loss, no discharge, no earache NOSE: no stuffiness, no sneezing, no discharge MOUTH, THROAT AND NECK: no bleeding gums, no sore throat, no swollen neck CARDIAC: no palpitations, + dyspnea on exertion, no orthopnea, no PND,+ edema, no chest pain RESPIRATORY: + shortness of breath, no wheeze, + cough, no sputum, no hemoptysis , no asthma GI: + decreased appetite, no nausea, no vomiting, no dysphagia, no diarrhea, no constipation, no abdominal pain URINARY: no change in frequency, no urgency, no polyuria, no hematuria, no incontinence MUSCULOSKELETAL: no muscle weakness, no pain, no joint stiffness NEUROLOGIC: no loss of sensation/numbness, no tingling, no tremors, no weakness/ paralysis HEMATOLOGIC: + anemia, no easy bruising SKIN: no rashes ENDOCRINE: no heat/cold intolerance, no polyuria, no polydipsia, no thyroid problems, no diabetes PSYCHIATRIC: no anxiety, no depression, no suicidal ideations Medications and Allergies Allergies Allergy/AdvReac Type Severity Reaction Status Date / Time No Known Allergies Allergy Verified 01/03/17 23:40 Home Medications Medication Instructions Recorded Confirmed Last Taken Type Thiamine [Vitamin B-1] 100 mg PO QDAY #30 tablet 11/30/14 12/22/16 10/15/16 Rx Bisacodyl [Dulcolax suppos] 10 mg NE QDAY PRN #4 supp.rect 11/14/16 12/22/16 Unknown Rx Cholecalciferol (Vitamin D3) 2,000 units PO QDAY #30 11/14/16 12/22/16 Rx [Vitamin D3 2,000 unit] HYDROcodone/APAP 10-325 [[place] 1 each PO TID PRN #30 tablet 11/14/16 12/20/16 Unknown Rx 10-325 mg TAB] Ipratropium/Albuterol Sulfate 1 ampul IH Q6HRT #30 ampul.neb 11/14/16 12/22/16 Unknown Rx [DUONEB *Not for PRN Use*] Ondansetron [Zofran TAB] 4 mg PO Q4H PRN #30 tablet 11/14/16 12/20/16 Unknown Rx Pantoprazole [Protonix TAB] 40 mg PO QDAY #30 tablet 11/14/16 12/22/16 Unknown Rx guaiFENesin [Robitussin] 200 mg PO Q4H PRN #30 oral.liqd 11/14/16 12/22/16 Unknown Rx Folic Acid 1 tab PO QDAY 12/20/16 12/20/16 Unknown History Spironolactone [Aldactone] 50 mg PO BID 12/20/16 12/20/16 Unknown History chlorproMAZINE [Thorazine] 25 mg PO Q8H PRN 12/20/16 12/20/16 Unknown History Active Meds: Active Medications Norepinephrine (Levophed Drip 4 Mg/Ns 250 Ml) 4 mg in 250 mls @ 15 mls/hr IV TITR ONE; 4 MCG/MIN PRN Reason: Protocol Stop: 01/04/17 18:47 Last Titration: 01/04/17 03:05 Dose: 6 mcg/min, 22.5 mls/hr Levofloxacin/Dextrose (Levaquin 750mg/150ml) 750 mg in 150 mls @ 100 mls/hr IV Q24HR ZOHRA PRN Reason: Protocol Exam - Physical Exam Narrative exam: Patient is in moderate cardiopulmonary distress. The patient is emaciated. Vital signs as documented. Head exam is unremarkable. + scleral icterus . Neck is without jugular venous distension, thyromegaly, or carotid bruits. Lungs are clear to auscultation. Cardiac exam reveals regular rate and Rhythm. Abdominal exam reveals grossly distended abdomen, significant for ascites. Extremities are +2 pedal and pretibial edema. PIER HAND: Sleepy. - Constitutional Vitals: Temp Pulse Resp BP Pulse Ox 97.7 F 103 H 16 106/67 99 01/04/17 00:01 01/04/17 02:30 01/04/17 02:30 01/04/17 02:30 01/04/17 02:30 Results - Labs CBC & Chem 7: 01/04/17 00:30 01/04/17 00:30 Labs: Laboratory Last Values WBC 10.1 K/mm3 (4.5-11.0) 01/04/17 00:30 RBC 2.30 M/mm3 (3.65-5.03) L 01/04/17 00:30 Hgb 8.6 gm/dl (11.8-15.2) L 01/04/17 00:30 Hct 26.5 % (35.5-45.6) L 01/04/17 00:30 MCV 115 fl (84-94) H 01/04/17 00:30 MCH 38 pg (28-32) H 01/04/17 00:30 MCHC 33 % (32-34) 01/04/17 00:30 RDW 15.3 % (13.2-15.2) H 01/04/17 00:30 Plt Count 134 K/mm3 (140-440) L 01/04/17 00:30 Lymph % (Auto) 11.0 % (13.4-35.0) L 01/04/17 00:30 [place] % (Auto) 15.0 % (0.0-7.3) H 01/04/17 00:30 Eos % (Auto) 0.1 % (0.0-4.3) 01/04/17 00:30 Baso % (Auto) 0.2 % (0.0-1.8) 01/04/17 00:30 Lymph # 1.1 K/mm3 (1.2-5.4) L 01/04/17 00:30 [place] # 1.5 K/mm3 (0.0-0.8) H 01/04/17 00:30 Eos # 0.0 K/mm3 (0.0-0.4) 01/04/17 00:30 Baso # 0.0 K/mm3 (0.0-0.1) 01/04/17 00:30 Seg Neutrophils % 73.7 % (40.0-70.0) H 01/04/17 00:30 Seg Neutrophils # 7.5 K/mm3 (1.8-7.7) 01/04/17 00:30 PT 23.4 Sec. (12.2-14.9) H 01/04/17 00:30 INR 2.08 (0.87-1.13) H 01/04/17 00:30 APTT 33.5 Sec. (24.2-36.6) 01/04/17 00:30 Sodium 123 mmol/L (137-145) L 01/04/17 00:30 Potassium 5.5 mmol/L (3.6-5.0) H 01/04/17 00:30 Chloride 86.0 mmol/L (98-107) L 01/04/17 00:30 Carbon Dioxide 15 mmol/L (22-30) L 01/04/17 00:30 Anion Gap 28 mmol/L 01/04/17 00:30 BUN 18 mg/dL (9-20) 01/04/17 00:30 Creatinine 1.1 mg/dL (0.8-1.5) 01/04/17 00:30 Estimated GFR > 60 ml/min 01/04/17 00:30 BUN/Creatinine Ratio 16.36 % 01/04/17 00:30 Glucose 156 mg/dL (75-100) H 01/04/17 00:30 Calcium 8.1 mg/dL (8.4-10.2) L 01/04/17 00:30 Total Bilirubin 5.60 mg/dL (0.1-1.2) H 01/04/17 00:30 AST 193 units/L (5-40) H 01/04/17 00:30 ALT 71 units/L (7-56) H 01/04/17 00:30 Alkaline Phosphatase 128 units/L (35-129) 01/04/17 00:30 Ammonia 65.0 umol/L (25-60) H 01/04/17 00:30 Total Creatine Kinase 83 units/L (55-170) 01/04/17 00:30 CK-MB (CK-2) 1.4 ng/mL (0.0-4.0) 01/04/17 00:30 CK-MB (CK-2) Rel Index 1.6 (0-4) 01/04/17 00:30 Troponin T < 0.010 ng/mL (0.00-0.029) 01/04/17 00:30 NT-Pro-B Natriuret Pep 612.7 pg/mL (0-900) 01/04/17 00:30 Total Protein 7.7 g/dL (6.3-8.2) 01/04/17 00:30 Albumin 1.2 g/dL (3.9-5) L 01/04/17 00:30 Albumin/Globulin Ratio 0.2 % 01/04/17 00:30 Assessment and Plan Assessment and plan: Acute on chronic hypoxic respiratory failure Right lower lobe pneumonia Sepsis with hypotension Hepatocellular CA/liver failure Acites Hyperammonemia Anemia Elevated INR - Patient is on pressors - IV Levaquin - I consented for paracentesis - Pain control - Lactose DVT prophylaxis - SCDs because the patient's INR is 2 Disposition - Admit to ICU CODE STATUS - Full Advance Directives: Yes (Full code) Plan of care discussed with patient/family: Yes
[2017-01-04] MEDS ORDERED: CEPHULAC PO PRN (04:30)
[2017-01-04] MEDS ORDERED: NACL 0.9% 100 ML ONE (07:08)
[2017-01-04] MEDS: DUONEB *Not for PRN Use IH SCH ×3 (08:30→20:37)
[2017-01-04] MEDS ORDERED: SODIUM BICARBONATE IV ONE ×3 (09:00→11:00)
[2017-01-04] MEDS ORDERED: D50W (25GM) Syringe IV ONE (09:00)
[2017-01-04] MEDS ORDERED: KIONEX PO PRN (09:05)
--- NOTE | 2017-01-04 09:05 | Event Note ---
Date: 01/04/17 pt seen and examined will continue current mx and plan as dictated in H and P K level 6.0 this am, will give NaHCO3, insulin 10units, d50 25gm, and calcium gluconate will also add kayexalate, d/c spiranolactone ordered paracenthesis Extended CC time 31 minutes
[2017-01-04] MEDS ORDERED: ALDACTONE PO SCH (10:00)
[2017-01-04] MEDS ORDERED: PROTONIX PO SCH (10:00)
[2017-01-04] MEDS ORDERED: CALCIUM GLUCONATE 1,000 MG in NACL 0.9% 100 ML IV ONE (10:00)
[2017-01-04] MEDS ORDERED: VITAMIN B-1 PO SCH (10:00)
[2017-01-04] MEDS ORDERED: VITAMIN D3 PO SCH (10:00)
[2017-01-04] MEDS ORDERED: FOLVITE PO SCH (10:00)
[2017-01-04] MEDS ORDERED: LEVAQUIN 750MG/150ML 750 MG/150 ML BAG IV SCH (10:00)
[2017-01-04] MEDS ORDERED: NACL 0.9% 500 ML 500 ML ONE (10:16)
[2017-01-04] MEDS: CEPHULAC PO SCH ×3 (10:41→22:58)
--- NOTE | 2017-01-04 14:08 | Consultation ---
History of Present Illness Consult date: 01/04/17 Requesting physician: KERON BARTLETT History of present illness: PULMONARY/CCM CONSULT NOTE (Full dictation # [id number]) Please see dictated notes for full details Medications and Allergies Allergies Allergy/AdvReac Type Severity Reaction Status Date / Time No Known Allergies Allergy Verified 01/03/17 23:40 Home Medications Medication Instructions Recorded Confirmed Last Taken Type Thiamine [Vitamin B-1] 100 mg PO QDAY #30 tablet 11/30/14 01/04/17 10/15/16 Rx Bisacodyl [Dulcolax suppos] 10 mg [place] QDAY PRN #4 supp.rect 11/14/16 01/04/17 Unknown Rx Cholecalciferol (Vitamin D3) 2,000 units PO QDAY #30 11/14/16 01/04/17 Rx [Vitamin D3 2,000 unit] HYDROcodone/APAP 10-325 [[place] 1 each PO TID PRN #30 tablet 11/14/16 01/04/17 Unknown Rx 10-325 mg TAB] Ipratropium/Albuterol Sulfate 1 ampul IH Q6HRT #30 ampul.neb 11/14/16 01/04/17 Unknown Rx [DUONEB *Not for PRN Use*] Ondansetron [Zofran TAB] 4 mg PO Q4H PRN #30 tablet 11/14/16 01/04/17 Unknown Rx Pantoprazole [Protonix TAB] 40 mg PO QDAY #30 tablet 11/14/16 01/04/17 Unknown Rx guaiFENesin [Robitussin] 200 mg PO Q4H PRN #30 oral.liqd 11/14/16 01/04/17 Unknown Rx Folic Acid 1 tab PO QDAY 12/20/16 01/04/17 Unknown History Spironolactone [Aldactone] 50 mg PO BID 12/20/16 01/04/17 Unknown History chlorproMAZINE [Thorazine] 25 mg PO Q8H PRN 12/20/16 01/04/17 Unknown History Active Meds: Active Medications Acetaminophen/Hydrocodone Bitart ([place] 10/325) 1 each PO TID PRN PRN Reason: Pain , Severe (7-10) Albuterol/Ipratropium (Duoneb *Not For Prn Use*) 1 ampul IH Q6HRT [facility] Last Admin: 01/04/17 08:30 Dose: 1 ampul Bisacodyl (Dulcolax) 10 mg SC QDAY PRN PRN Reason: Constipation Cholecalciferol (Vitamin D3) 2,000 unit PO QDAY [facility] Last Admin: 01/04/17 10:41 Dose: 2,000 unit Folic Acid (Folvite) 1 mg PO QDAY [facility] Last Admin: 01/04/17 10:40 Dose: 1 mg Guaifenesin (Robitussin) 200 mg PO Q4H PRN PRN Reason: Cough Norepinephrine (Levophed Drip 4 Mg/Ns 250 Ml) 4 mg in 250 mls @ 15 mls/hr IV TITR ONE; 4 MCG/MIN PRN Reason: Protocol Stop: 01/04/17 18:47 Last Titration: 01/04/17 09:00 Dose: 3 mcg/min, 11.25 mls/hr Levofloxacin/Dextrose (Levaquin 750mg/150ml) 750 mg in 150 mls @ 100 mls/hr IV Q24HR ZOHRA PRN Reason: Protocol Last Admin: 01/04/17 10:40 Dose: 100 mls/hr Lactulose (Cephulac) 20 gm PO Q6H [facility] Last Admin: 01/04/17 10:41 Dose: 20 gm Pantoprazole Sodium (Protonix) 40 mg PO QDAY [facility] Last Admin: 01/04/17 10:40 Dose: 40 mg Sodium Polystyrene Sulfonate (Kionex) 15 gm PO Q6HR PRN PRN Reason: Hyperkalemia Thiamine HCl (Vitamin B-1) 100 mg PO QDAY [facility] Last Admin: 01/04/17 10:40 Dose: 100 mg Physical Examination Vital signs: Vital Signs Temp Pulse Resp BP Pulse Ox 97.7 F 120 H 28 H 89/54 99 01/04/17 00:01 01/04/17 00:01 01/04/17 00:01 01/04/17 00:01 01/04/17 00:01 Results - Laboratory Findings CBC and BMP: 01/04/17 00:30 01/04/17 13:34 PT/INR, D-dimer PT 23.4 Sec. (12.2-14.9) H 01/04/17 00:30 INR 2.08 (0.87-1.13) H 01/04/17 00:30 Abnormal lab findings: Abnormal Labs 01/04/17 01/04/17 04:00 04:01 Potassium 6.0 H Crossmatch See Detail
[2017-01-04 14:13] LABS: Anion Gap 28 mmol/L; BUN/Creatinine Ratio 18.57; Blood Urea Nitrogen 26 mg/dL (9-20); Carbon Dioxide 17 mmol/L (22-30); Chloride 87.4 mmol/L (98-107); Glucose 128 mg/dL (75-100); Potassium 5.3 mmol/L (3.6-5.0); Sodium 127 mmol/L (137-145)
[2017-01-04 14:13] LABS: Phosphorous 5.7 mg/dL (2.5-4.5)
--- NOTE | 2017-01-04 15:21 | Event Note ---
Date: 01/04/17 Discussed with family (daughter, sister and brother) and updated pt's overall clinical status. They all decided to change his code status to DNR. DNR/AND form completed and placed on the chart. patient will be move out of the ICU, he is off levophed now.
[2017-01-04 22:14] LABS: BUN/Creatinine Ratio 18.75; Calcium 8.3 mg/dL (8.4-10.2); Chloride 88.6 mmol/L (98-107); Potassium 5.7 mmol/L (3.6-5.0)
--- NOTE | 2017-01-05 01:37 | Consultation ---
PULMONARY CRITICAL CARE EVALUATION CONSULTING PHYSICIAN: Dr. Wood. REASON FOR CONSULTATION: Difficulty breathing and hypotension. CHIEF COMPLAINT AND HISTORY OF PRESENT ILLNESS: The patient is a 61-year-old -French male known to me from past admission. PAST MEDICAL HISTORY: Significant for diagnosis of metastatic hepatocellular carcinoma, who actually is on home hospice, has had trouble with recurrent ascites. He is not too much of a good historian, but essentially states that he has been having difficulty breathing when asked for how long, he says forever. When asked if anything changed in particular on the day of this presentation, he denied any; however, the ER physician records that he mentioned in the past 2-3 days, he has had increased shortness of breath. On the day of presentation, he woke up in the morning with the same worsening shortness of breath. He complained of abdominal tenderness, difficulty taking a deep breath and difficulty moving the fingers on his right hand like he had cramps essentially. He denied any gross bleeding. He denied gross hematemesis. He denied gross hemoptysis. He denied hematochezia. He denied melena. In the Emergency Room, he evoked is DNR number, his prior DNR order, wanted to be a full code, was hypotensive, was admitted to the Intensive Care Unit on Levophed drip. When I stopped by to see him, he had been meeting with family members of his family. He had decided to be do not resuscitate again. He was asking for some relief from his ascites. With regards to tobacco use/abuse, he is not a current smoker, I believe he has a remote tobacco smoking history. This is as much of the history of presentation as I have. PAST MEDICAL HISTORY: Includes the following: History of liver cancer, metastatic; history of hepatitis C; history of hypertension. PAST SURGICAL HISTORY: Denied any. MEDICATIONS: He was on at the time I stopped by to see him, according to the medication administration record included the following: He was on Gaffney 10/325 mg p.o. t.i.d. p.r.n. severe pain, DuoNeb treatments nebulized q.6 hours, p.r.n. Dulcolax, vitamin D3 is 2000 units p.o. daily, folic acid 1 mg p.o. daily, p.r.n. Robitussin, lactulose 20 mg p.o. q.6 hours, Levaquin 750 mg IV daily, Levophed drip was going at 4 mcg per minute that was earlier, Protonix 40 mg p.o. daily, Kayexalate 15 grams p.o. q.6 hours as well as thiamine 100 mg p.o. daily. ALLERGIES: No known drug allergies. DIET: Thin gentleman with central obesity. No significant weight changes since I have last seen him recently. FAMILY AND SOCIAL HISTORY: Lives in the community. Denies current alcohol, tobacco, or illicit drug use or abuse, never smoker according to him. Family history otherwise noncontributory. REVIEW OF SYSTEMS: Denies loss of consciousness. No new onset seizures. No new onset focal weakness. Denies gross bleeding as mentioned above. Complete 14 system review of systems obtained. Pertinent positives and/or negatives as in body of history above, otherwise they are noncontributory. PHYSICAL EXAMINATION: VITAL SIGNS: At presentation, he was afebrile, temperature 97.7 degrees Fahrenheit, pulse of 120, respiratory rate was 28, blood pressure was 89/54, oxygen sats were 99%, inspired oxygen concentration was not recorded. HEAD, EYES, EARS, NOSE AND THROAT: Pupils are equal, round, about 3-4 mm, reactive to light. Extraocular muscle movements appeared intact. Oropharynx is Mallampati #2 oropharynx. No significant posterior oropharyngeal erythema. Grossly, no palpable lymph nodes in the supraclavicular or submandibular lymph node chains. LUNGS: Auscultation of both lung cannon significant mostly for diminished bilateral air movement, no active wheezing. HEART: Heart sounds 1 and 2 are heard at the time of my evaluation, regular rate and rhythm. ABDOMEN: Full, distended, soft. Hypoactive bowel sounds. Mildly tender in certain areas. EXTREMITIES: Without overt digital clubbing, cyanosis, or pedal edema. NEUROLOGIC: The exam was grossly nonfocal. LABORATORY DATA: From my review are as follows: Admission white cell count 10,100, hemoglobin was 8.6, hematocrit was 26.5, platelet count was 134. INR was 2.08. Serum sodium was 123, potassium 5.5, chloride 86, bicarbonate 15, BUN 18, creatinine 1.1, glucose 156. Total bilirubin was 5.6, AST 193, ALT 71. Ammonia was 65. Cardiac enzymes were within normal limits. BNP was within normal limits. Potassium most recent is down to 5.3. Blood cultures no growth to date. Chest x-ray was reviewed. I have also reviewed the radiologist's interpretation and I do agree with it, mostly is hypoventilation changes, mostly from I believe the ascites. I cannot rule out small bilateral pleural effusions. This film is poorly rotated. No gross pneumothorax, no gross bony fractures. ASSESSMENT AND PLAN: We have an elderly gentleman in with complications from his decompensated liver disease and hepatocellular carcinoma. He has had an extensive discussion with the family and with the attending physician and has decided to made a DNR again. He is actually weaned off vasopressors at this point in time. I think comfort measures should again be focused on and off for now, the hospice discussion has not yet been had. The goal will be to relieve his abdominal distention. Consult has been placed for interventional radiology to assist with drainage. He may need some correction of his INR. Before that, I will defer to the interventional radiologist. We will continue lactulose. We will continue the analgesia. He is now off Levophed. Supplemental oxygen will be given to keep sats greater than or equal to about 92%-94%. Aspiration precautions will be maintained. He is appropriately on GI prophylaxis, DVT prophylaxis is in the form of SCDs. Flu and pneumonia vaccination will be per protocol. Thank you very much for the consult. Dr. Wood will follow along and make further recommendations as picture progresses/becomes clearer, tentatively he can be transferred to the medical floor. JOB# [id number] LEONARDO/BEENA
[2017-01-05] MEDS: DUONEB *Not for PRN Use IH SCH (01:51)
--- NOTE | 2017-01-05 02:31 | Admit Criteria Form ---
Admission Criteria Documentation: HYPONATREMIA; HYPERNATREMIA; HYPOKALEMIA; HYPERKALEMIA; HYPOCALCEMIA; HYPERCALCEMIA Clinical Indications for Inpatient Care (Place 'X' for any and all applicable criteria): Ongoing inpatient care may be indicated for ANY ONE of the following [G](1)(2)(3 )(5): [X]I. Hyponatremia with ANY ONE of the following: [X]a) Sodium less than 130 mEq/L (mmol/L) (new) (6)(22) [ ]b) Sodium less than 135 mEq/L (mmol/L) with ANY ONE of the following: [ ]i) Severe medical etiology requiring inpatient management (eg, heart failure, hypovolemia) [ ]ii) Altered mental status [ ]iii) Seizures [ ]II. Hypernatremia with ANY ONE of the following: [ ]a) Sodium greater than 155 mEq/L (mmol/L) [ ]b) Sodium greater than 150 mEq/L (mmol/L) with ANY ONE of the following: [ ] i) Altered mental status [ ]ii) Seizures [ ]iii) Severe medical etiology (eg, hypovolemia, diabetes insipidus) [ ]iv) Severe weakness [ ]v) Severe medical etiology (eg, hemolysis, infection, drug overdose) [ ]III. Hypokalemia with ANY ONE of the following: [ ]a) Potassium less than 2.5 mEq/L (mmol/L) despite outpatient and emergency treatment [ ]b) Potassium less than 3.0 mEq/L (mmol/L) with ANY ONE of the following: [ ]i) Weakness [ ]ii) Cardiac abnormality (eg, arrhythmia, conduction disturbance) [ ]iii) Cardiac ischemia [ ]iv) Ileus [ ]v) Ongoing medical cause requiring inpatient management. ( e.g., acute renal wasting, SIADH) [ ]vi) Other severe symptoms [ ] IV. Hyperkalemia with ANY ONE of the following: [ ]a) Potassium greater than 6.5 mEq/L (mmol/L) [ ]b) Potassium greater than 5 mEq/L (mmol/L) with ANY ONE of the following: [ ]i) Severe ECG findings [H] [ ]ii) Acute worsening of renal failure (creatinine greater than 2.5 mg/dL (221 micromoles/L) or significant elevation for age and size) [ ] V. Hypocalcemia with ANY ONE of the following: [ ]a) Calcium less than 7 mg/dL (1.75 mmol/L) despite outpatient and emergency treatment(19) [ ]b) Calcium less than 8 mg/dL (2 mmol/L) with significant symptoms or findings; examples include: [ ]i) Cardiac abnormality (eg, arrhythmia or conduction disturbance) [ ]ii) Altered mental status [ ]iii) Seizures [ ]iv) Breathing difficulty [ ]v) Muscle spasms [ ]. Hypercalcemia with ANY ONE of the following: [ ]a) Calcium greater than 14 mg/dL (3.5 mmol/L) [ ]b) Calcium greater than 12 mg/dL (3 mmol/L) with ANY ONE of the following: [ ]i) Significant dehydration or hypovolemia as indicated by ANY ONE of the following(2): [ ]1. Clinically significant dehydration as indicated by ANY ONE of the following: [ ]A. Acute loss of weight from baseline (5% of body weight in adults, 9% in pediatric patients) [ ]B. Hemodynamic instability [ ]C. Acute renal failure [ ]D. Serum sodium greater than 150 mEq/L (mmol/L) [ ]2) Dehydration that is persistent indicated by ALL of the following: [ ]A. Oral rehydration therapy not tolerated or insufficient to adequately correct dehydration [ ]B. Appropriate intravenous treatment (eg, fluids ) does not readily correct dehydration ie, after 12 to 24 hours of treatment) [ ]ii) Significant symptoms or findings; examples include: [ ]1) Altered mental status [ ]2) Cardiac abnormality (eg, arrhythmia, conduction disturbance) [ ]3) Cardiac abnormality (eg, arrhythmia, conduction disturbance) The original [facility] [employer] content created by [employer] has been revised. The portions of the content which have been revised are identified through the use of italic text or in bold, and [facility] has neither reviewed nor approved the modified material. All other unmodified content is copyright [facility] [employer] [facility] Please see references footnoted in the original [facility] [employer] edition 2016 Admission Criteria Met: Yes
[2017-01-05 02:32] VITALS: BP 107/72
[2017-01-05] MEDS ORDERED: MORPHINE IV ONE (02:57)
--- NOTE | 2017-01-05 04:02 | Event Note ---
Date: 01/05/17 call to pronounce patient,Time of [id number]
== END 2017-01-05 05:00 | DRG 871 ==
LOC: ED 23:36 → CC1 01-04 02:15 → 3A 01-04 16:55
PROVIDERS: ADMIT Internal Medicine; ATTEND Internal Medicine
PROC: 30233N1 Transfusion of Nonautologous Red Blood Cells into Peripheral Vein, Percutaneous Approach (ICD-10-PCS; principal; 2017-01-04)
PROC: 06HN33Z Insertion of Infusion Device into Left Femoral Vein, Percutaneous Approach (ICD-10-PCS; 2017-01-04)
DX: A41.9 Sepsis, unspecified organism (principal); J96.21 Acute and chronic respiratory failure with hypoxia; J18.1 Lobar pneumonia, unspecified organism; C22.0 Liver cell carcinoma; E87.1 Hypo-osmolality and hyponatremia; D68.9 Coagulation defect, unspecified; E72.20 Disorder of urea cycle metabolism, unspecified; C79.9 Secondary malignant neoplasm of unspecified site; K72.90 Hepatic failure, unspecified without coma; B19.20 Unspecified viral hepatitis C without hepatic coma; Z66 Do not resuscitate; J44.9 Chronic obstructive pulmonary disease, unspecified; M19.042 Primary osteoarthritis, left hand; M19.041 Primary osteoarthritis, right hand; D64.9 Anemia, unspecified; D69.6 Thrombocytopenia, unspecified; Z79.899 Other long term (current) drug therapy
CPT/HCPCS: 36415; 71010; 80048; 80053; 82140; 82550; 82553; 83735; 83880; 84100; 84132; 84484; 85025; 85610; 85730; 86850; 86900; 86901; 86920; 87040; 93005; 93010; 94640; 94760; J0610; J1815; J1956; J7040; P9016